=== PATIENT | female | born 1970 | race Caucasian/White ===

== ENCOUNTER 2018-04-27 16:27 | Emergency (ER) | payer MEDICARE ==
[2018-04-27] MEDS ORDERED: Sodium Chloride 0.9% 10 ML Syringe FLUSH PRN (16:38)
[2018-04-27] MEDS ORDERED: Sodium Chloride 0.9% 1,000 ML IV ONE (16:38)
--- NOTE | 2018-04-27 16:49 | EDM.PDOC ---
ED HPI GENERAL MEDICAL PROBLEM - General Chief Complaint: Gastrointestinal Problem Stated Complaint: N/V;BLOATED;ABD PAIN Time Seen by Provider: 04/27/18 16:34 Source of Information: Reports: Patient History Limitations: Reports: No Limitations - History of Present Illness INITIAL COMMENTS - FREE TEXT/NARRATIVE: Patient is a 47-year-old female who was seen in the [facility] clinic this afternoon and transferred to the emergency department secondary to workup for abdominal pain. Patient states that she's had right upper and lower abdominal pain on and off for the past 10 days. She does have episodes of nausea but no vomiting. She states that she does have chronic fibromyalgia and initially attributed the discomfort to that. Patient states that she feels very fatigued and has lost her appetite. Patient has history of complete hysterectomy. Patient denies fever, chest pain, shortness of breath, diarrhea, blood in stool , dysuria, any trauma, or out of country travel. Onset: Gradual Onset Date: 04/17/18 Duration: Week(s): Location: Reports: Abdomen Quality: Reports: Sharp, Other (Bloating) Severity: Moderate Improves with: Reports: None Worsens with: Reports: Eating Context: Denies: Trauma Associated Symptoms: Reports: Malaise, Nausea/Vomiting Right Abdomen Pain Score (Numeric/FACES): 5 - Related Data Allergies Allergy/AdvReac Type Severity Reaction Status Date / Time cephalexin Allergy Itching Verified 04/27/18 17:02 hydrocodone Allergy Hypotension Verified 04/27/18 17:02 [From Lorcet (hydrocodone)] metronidazole [From Flagyl] Allergy Rash Verified 04/27/18 17:02 morphine Allergy Respiratory Verified 04/27/18 17:02 Depression Penicillins Allergy Rash Verified 04/27/18 17:02 Sulfa (Sulfonamide Allergy Rash Verified 04/27/18 17:02 Antibiotics) Home Meds: Home Meds Estradiol 1 mg PO DAILY 02/25/16 [History] Levothyroxine 175 mcg PO ACBRK 02/25/16 [History] traMADol [Ultram] 100 mg PO Q8HR 02/25/16 [History] Ascorbic Acid [Vitamin C] 1,000 mg PO 04/27/18 [History] Aspirin 81 mg PO DAILY 04/27/18 [History] Usc954/FA/Omega3/Dha/Fish Oil [ Gummies] 1 tab PO DAILY 04/27/18 [ History] Past Medical History Gastrointestinal History: Reports: Chronic Constipation Musculoskeletal History: Reports: Fibromyalgia Psychiatric History: Reports: Anxiety, Depression Endocrine/Metabolic History: Reports: Hypothyroidism - Past Surgical History Female Surgical History: Reports: Section, Hysterectomy, Salpingo- Oophorectomy Musculoskeletal Surgical History: Reports: Carpal Tunnel Social & Family History - Caffeine Use Caffeine Use: Reports: Coffee, Energy Drinks, Soda ED ROS GENERAL - Review of Systems Review Of Systems: ROS reveals no pertinent complaints other than HPI. Constitutional: Reports: Fatigue HEENT: Reports: No Symptoms Respiratory: Reports: No Symptoms Cardiovascular: Reports: No Symptoms Endocrine: Reports: No Symptoms GI/Abdominal: Reports: Abdominal Pain, Constipation, Decreased Appetite, Nausea. Denies: Black Stool, Bloody Stool, Diarrhea, Difficulty Swallowing, Hematemesis, Hematochezia, Melena, Mucous in Stool, Vomiting : Reports: No Symptoms Musculoskeletal: Reports: Other (Chronic muscular pain) Skin: Reports: No Symptoms Neurological: Reports: No Symptoms Psychiatric: Reports: No Symptoms Hematologic/Lymphatic: Reports: No Symptoms Immunologic: Reports: No Symptoms ED EXAM, GI/ABD - Physical Exam Exam: See Below Exam Limited By: No Limitations General Appearance: Alert, WD/WN, Mild Distress Eyes: Right: Erythema, Left: Normal Appearance Throat/Mouth: Normal Inspection, Normal Oropharynx, No Airway Compromise Head: Atraumatic, Normocephalic Neck: Normal Inspection Respiratory/Chest: No Respiratory Distress, Lungs Clear, Normal Breath Sounds, No Accessory Muscle Use, Chest Non-Tender Cardiovascular: Regular Rate, Rhythm, No Murmur GI/Abdominal Exam: Normal Bowel Sounds, Soft, No Organomegaly, No Distention, No Abnormal Bruit, No Mass, Tender (Right upper and lower quadrant). No: Distended, Guarding, Rigid, Rebound Back Exam: CVA Tenderness (R). No: CVA Tenderness (L) Extremities: Normal Inspection, No Pedal Edema Neurological: Alert, Oriented, Normal Cognition Psychiatric: Normal Affect, Normal Mood Skin Exam: Warm, Dry, Intact, Normal Color, No Rash Lymphatic: No Adenopathy Course - Vital Signs Last Recorded V/S: Last Vital Signs Temp 97.7 F 04/27/18 16:54 Pulse 94 04/27/18 16:54 Resp 16 04/27/18 16:54 BP 122/84 01/17/19 16:54 Pulse Ox 98 04/27/18 16:54 - Orders/Labs/Meds Orders: Active Orders 24 hr Category Date Time Status Peripheral IV Care [RC] . DIRECTED Care 04/27/18 16:41 Active CBC WITH AUTO DIFF [HEME] Stat Lab 04/27/18 16:34 Ordered SEDIMENTATION RATE MANUAL [HEME] Stat Lab 04/27/18 16:34 Ordered Sodium Chloride 0.9% [Saline Flush] Med 04/27/18 16:38 Ordered 10 ml FLUSH Q8HR PRN Peripheral IV Insertion Adult [OM.PC] Routine Oth 04/27/18 16:38 Ordered Medication Orders Sodium Chloride (Saline Flush) 10 ml FLUSH Q8HR PRN PRN Reason: keep vein open Labs: Laboratory Tests 04/27/18 04/27/18 04/27/18 Range/Units 16:46 16:46 17:21 WBC 7.51 (5.00-10.00) 10^3/uL RBC 5.00 (3.80-5.50) 10^6/uL Hgb 15.0 (12.0-16.0) g/dL Hct 44.9 (37.0-47.0) % MCV 89.8 (82.0-92.0) fL MCH 30.0 (27.0-31.0) pg MCHC 33.4 (32.0-36.0) g/dL RDW 13.1 (11.5-14.5) % Plt Count 334 (150-400) 10^3/uL MPV 9.6 (7.4-10.4) fL Immature Gran % (Auto) 0.1 (0.0-5.0) % Neut % (Auto) 64.8 (50.0-70.0) % Lymph % (Auto) 25.8 (20.0-40.0) % [place] % (Auto) 7.7 (2.0-8.0) % Eos % (Auto) 1.1 (1.0-3.0) % Baso % (Auto) 0.5 (0.0-1.0) % Immature Gran # (Auto) 0.01 (0.00-0.50) 10^3/uL Neut # (Auto) 4.86 (2.50-7.00) 10^3/uL Lymph # (Auto) 1.94 (1.00-4.00) 10^3/uL [place] # (Auto) 0.58 (0.10-0.80) 10^3/uL Eos # (Auto) 0.08 L (0.10-0.30) 10^3/uL Baso # (Auto) 0.04 (0.00-0.10) 10^3/uL Sodium 136 (136-145) mmol/L Potassium 4.1 (3.3-5.3) mmol/L Chloride 99 (98-115) mmol/L Carbon Dioxide 29.6 (21.0-32.0) mmol/L Anion Gap 11.5 (5-15) mmol/L BUN 15 (6-25) mg/dL Creatinine 0.79 (0.51-1.17) mg/dL Est Cr Clr Drug Dosing 83.77 mL/min Estimated GFR (MDRD) > 60 mL/min Glucose 106 H (75 - 99) mg/dL Calcium 9.3 (8.7-10.3) mg/dL Total Bilirubin 0.3 (0.2-1.0) mg/dL AST 20 (15-37) U/L ALT 34 (12-78) U/L Alkaline Phosphatase 81 (46-116) IU/L Total Protein 7.9 (6.4-8.2) g/dL Albumin 3.97 (3.00-4.80) g/dL Lipase 136 (73-393) U/L Specimen Type Urincc Urine Color Light yellow (YELLOW) Urine Appearance Clear (CLEAR) Urine pH 6.0 (5.0-9.0) Ur Specific [place] 1.010 (1.005-1.030) Urine Protein Negative (NEGATIVE) mg/dL Urine Glucose (UA) Negative (NEGATIVE) mg/dL Urine Ketones Negative (NEGATIVE) mg/dL Urine Occult Blood Trace-intact H (NEGATIVE) Urine Nitrite Negative (NEGATIVE) Urine Bilirubin Negative (NEGATIVE) Urine Urobilinogen 0.2 (0.2-1.0) E.U./dL Ur Leukocyte Esterase Negative (NEGATIVE) Urine RBC 0-5 (0-5) /HPF Urine WBC 0-5 (0-5) /HPF Ur Epithelial Cells Moderate H /LPF Urine Bacteria Rare (NONE TO FEW) /HPF Meds: Medications Generic Name Dose Route Start Last Admin Trade Name Freq PRN Reason Stop Dose Admin Sodium Chloride 10 ml 04/27/18 16:38 Saline Flush FLUSH Q8HR PRN keep vein open Discontinued Medications Generic Name Dose Route Start Last Admin Trade Name Freq PRN Reason Stop Dose Admin Sodium Chloride 1,000 mls @ 999 mls/hr 04/27/18 16:38 04/27/18 17:16 Normal Saline IV 04/27/18 17:38 999 mls/hr .BOLUS ONE Administration Sodium Chloride 50 mls @ 3 mls/sec 04/27/18 17:23 Normal Saline IV 04/27/18 17:24 ASDIRECTED ONE Iopamidol 75 ml 04/27/18 17:23 Isovue-300 (61%) IV 04/27/18 17:24 ONETIME ONE Metoclopramide HCl 10 mg 04/27/18 17:10 04/27/18 17:16 Reglan IVPUSH 04/27/18 17:11 10 mg ONETIME ONE Administration - Radiology Interpretation Free Text/Narrative:: CT showed mild ileus, no appendicitis, diverticulitis, or infectious process noted. - Re-Assessments/Exams Free Text/Narrative Re-Assessment/Exam: 04/27/18 17:54 Patient afebrile, nontoxic appearing, vital signs stable, pain controlled. Patient takes 3-4 tramadol as per day, and has a poor diet. Discussed with patient the concern for mild ileus and constipation. Patient will be given information and follow-up at the clinic. 04/27/18 17:56 Departure - Departure Time of Disposition: 17:55 Disposition: Home, Self-Care 01 Condition: Good Clinical Impression: Abdominal pain Constipation Qualifiers: Constipation type: slow transit constipation Qualified Code(s): K59.01 - Slow transit constipation - Discharge Information Instructions: Constipation, Adult, [id number], Abdominal Pain, Adult, Easy-to -Read Referrals: Harriet Hammond PA-C [Primary Care Provider] - Forms: ED Department Discharge Additional Instructions: Follow-up at the clinic in 2-3 days. Return to the emergency room sooner if symptoms continue or worsen. Follow appropriate diet, and limit pain medicine. - My Orders Last 24 Hours: My Active Orders 04/27/18 16:34 CBC WITH AUTO DIFF [HEME] Stat SEDIMENTATION RATE MANUAL [HEME] Stat 04/27/18 16:38 Sodium Chloride 0.9% [Saline Flush] 10 ml FLUSH Q8HR PRN Peripheral IV Insertion Adult [OM.PC] Routine 04/27/18 16:41 Peripheral IV Care [RC] . DIRECTED - Assessment/Plan Last 24 Hours: My Active Orders 04/27/18 16:34 CBC WITH AUTO DIFF [HEME] Stat SEDIMENTATION RATE MANUAL [HEME] Stat 04/27/18 16:38 Sodium Chloride 0.9% [Saline Flush] 10 ml FLUSH Q8HR PRN Peripheral IV Insertion Adult [OM.PC] Routine 04/27/18 16:41 Peripheral IV Care [RC] . DIRECTED Assessment:: Constipation Plan: Follow-up at clinic
[2018-04-27 17:02] VITALS: BP 122/84
[2018-04-27] MEDS ORDERED: Metoclopramide 10 MG/2 ML SDV IVPUSH ONE (17:10)
[2018-04-27 17:15] LABS: ANION GAP 11.5 mmol/L (5-15); CHLORIDE,CL 99 mmol/L (98-115); SODIUM,NA 136 mmol/L (136-145)
[2018-04-27] MEDS: Iopamidol 612 MG/ML 75 ML Bottle IV ONE (17:23)
[2018-04-27] MEDS: Sodium Chloride 0.9% 50 ML IV ONE (17:23)
--- NOTE | 2018-04-27 17:29 | CT ---
[id number] CT/CT Abdomen Pelvis W IV EXAM: CT Abdomen Pelvis W IV CLINICAL DATA: RIGHT-SIDED ABDOMINAL PAIN COMPARISON: NO PREVIOUS SIMILAR EXAM IS AVAILABLE. FINDINGS: The uterus is slightly prominent for age. There is mild bowel distention. There is no adnexal mass or free fluid. There is no diverticulitis. The appendix appears normal. The liver and spleen, kidneys and adrenals, pancreas and aorta are unremarkable. The gallbladder is not distended. IMPRESSION: MILD ILEUS. Matt Izquierdo MD 04/27/18 4734 Thank you for allowing us to participate in the care of your patient.
[2018-04-27] MEDS ORDERED: Metoclopramide 10 MG Tab PO ONE (17:59)
[2018-04-28] MEDS: Sodium Chloride 0.9% 50 ML IV ONE (16:51)
[2018-04-28] MEDS: Iopamidol 612 MG/ML 75 ML Bottle IV ONE (17:05)
== END 2018-04-27 18:20 | disposition home or self-care (01) ==
LOC: KA.ED 16:27
DX: K59.01 Slow transit constipation (principal); F41.9 Anxiety disorder, unspecified; F32.9 Major depressive disorder, single episode, unspecified; E03.9 Hypothyroidism, unspecified; Z79.82 Long term (current) use of aspirin; Z79.899 Other long term (current) drug therapy; Z88.6 Allergy status to analgesic agent; Z88.8 Allergy status to other drugs, medicaments and biological substances; Z88.5 Allergy status to narcotic agent; Z88.0 Allergy status to penicillin; Z88.1 Allergy status to other antibiotic agents; Z88.2 Allergy status to sulfonamides
CPT/HCPCS: 36415; 74177; 80053; 81001; 83690; 85025; 85651; 96361; 96374; 99284; A9270-GY; J2765; J7030; J7050; Q9967

== ENCOUNTER 2021-02-18 20:33 | Emergency (ER) | payer MEDICARE ==
--- NOTE | 2021-02-18 20:44 | EDM.PDOC ---
ED HPI GENERAL MEDICAL PROBLEM - General Chief Complaint: Respiratory Problem Stated Complaint: BAD COUGHING Time Seen by Provider: 02/18/21 20:33 Source of Information: Reports: Patient History Limitations: Reports: No Limitations - History of Present Illness INITIAL COMMENTS - FREE TEXT/NARRATIVE: Cassandra, 50-year-old female, presents driven by her to the emergency de partment with ongoing cough. has not experiencing any symptoms at this time. Is not COVID-19 vaccinated. Does not get annual Influenza immunizations. She states that cough started some yesterday and has been intermittent worsening last night and specifically today. Today it has become slightly yellow with production at times but she is unable to quit coughing once she starts. Any deep inspiration or physical activity seems to promote cough. She states on the way to the facility this evening from the residence she started experiencing mild body aches. Denies any change in hearing taste or smell. States that she had a hamburger and Polish fries roughly an hour and a half prior to the presentation to the emergency department for evaluation. There has been no change in bowel or bladder. History of fibromyalgia being the only medical problem denying any respiratory diagnoses nor cardiac. States she has been using her 's albuterol nebulizers at home for her cough. She is not truly been short of breath. 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 treatments.) - Related Data Allergies Allergy/AdvReac Type Severity Reaction Status Date / Time cephalexin Allergy Itching Verified 02/18/21 20:39 hydrocodone Allergy Hypotension Verified 02/18/21 20:39 [From Lorcet (hydrocodone)] metronidazole [From Flagyl] Allergy Rash Verified 02/18/21 20:39 morphine Allergy Respiratory Verified 02/18/21 20:39 Depression Penicillins Allergy Rash Verified 02/18/21 20:39 Sulfa (Sulfonamide Allergy Rash Verified 02/18/21 20:39 Antibiotics) Home Meds: Home Meds Levothyroxine 150 mcg PO ACBRK 02/25/16 [History] estradioL [Estradiol] 1 mg PO DAILY 02/25/16 [History] traMADol [Ultram] 100 mg PO Q8HR 02/25/16 [History] Ascorbic Acid [Vitamin C] 1,000 mg PO DAILY 04/27/18 [History] Aspirin 81 mg PO DAILY 04/27/18 [History] Pnv No.103/Folic/Om3s/Fish Oil [ Gummies] 1 tab PO DAILY 04/27/18 [History] Benzonatate [Tessalon Perles] 100 mg PO TID 10 Days #30 cap 02/18/21 [Rx] Cholecalciferol (Vitamin D3) [Vitamin D3] 1 tab PO DAILY 02/18/21 [History] Codeine/guaiFENesin [Robitussin AC] 236 ml PO Q4HR 10 Days #236 liquid 02/18/21 [Rx] Past Medical History Cardiovascular History: Reports: None Respiratory History: Reports: None Gastrointestinal History: Reports: Chronic Constipation Musculoskeletal History: Reports: Fibromyalgia Psychiatric History: Reports: Anxiety, Depression Endocrine/Metabolic History: Reports: Hypothyroidism - Past Surgical History Female Surgical History: Reports: Section, Hysterectomy, Salpingo- Oophorectomy Musculoskeletal Surgical History: Reports: Carpal Tunnel Social & Family History - Family History Family Medical History: No Pertinent Family History - Tobacco Use Tobacco Use Status *Q: Never Tobacco User - Caffeine Use Caffeine Use: Reports: Coffee, Energy Drinks, Soda ED ROS GENERAL - Review of Systems Review Of Systems: Comprehensive ROS is negative, except as noted in HPI. ED EXAM, GENERAL - Physical Exam Exam: See Below Free Text/Narrative:: Alert, oriented, with no evidence of cyanosis nor pallor. There is a harsh cough nonproductive while I am in the room. HEENT is negative discharge or deformity with no involvement the auditory canals or tympanic membranes. [place] moist mucous membranes with no erythema nor exudate. Nasal passages are patent. Thorax is clear with inspiration exhalation cycle inducing cough. I do not appreciate any wheezes nor crackles. Full air exchange is noted throughout all tran. Cardiac is S1-S2 with no noted murmur. No flank pain no abdominal pain. No edema to the extremities. She states developing aches to the lower extremities as well as upper extremities which is not painful to touch but she states she can sense an increase with motion. She has done no activity or travel placing her at risk of muscle strain or other exposure. Course - Vital Signs Last Recorded V/S: Last Vital Signs Temp 96.3 F L 02/18/21 20:36 Pulse 102 H 02/18/21 21:25 Resp 20 02/18/21 21:25 BP 116/68 02/18/21 21:25 Pulse Ox 94 L 02/18/21 21:25 - Orders/Labs/Meds Orders: Active Orders 24 hr Category Date Time Status Chest 1V Frontal [CR] Stat Exams 02/18/21 20:40 Ordered Labs: Laboratory Tests 02/18/21 02/18/21 02/18/21 Range/Units 20:40 20:40 20:47 WBC 10.78 H (5.00-10.00) 10^3/uL RBC 4.63 (3.80-5.50) 10^6/uL Hgb 13.8 (12.0-16.0) g/dL Hct 42.1 (37.0-47.0) % MCV 90.9 (82.0-92.0) fL MCH 29.8 (27.0-31.0) pg MCHC 32.8 (32.0-36.0) g/dL RDW 13.3 (11.5-14.5) % Plt Count 333 (150-400) 10^3/uL MPV 9.4 (7.4-10.4) fL Immature Gran % (Auto) 0.2 (0.0-5.0) % Neut % (Auto) 79.7 H (50.0-70.0) % Lymph % (Auto) 9.7 L (20.0-40.0) % [place] % (Auto) 8.0 (2.0-8.0) % Eos % (Auto) 1.9 (1.0-3.0) % Baso % (Auto) 0.5 (0.0-1.0) % Neut # (Auto) 8.60 H (2.50-7.00) 10^3/uL Lymph # (Auto) 1.05 (1.00-4.00) 10^3/uL [place] # (Auto) 0.86 H (0.10-0.80) 10^3/uL Eos # (Auto) 0.20 (0.10-0.30) 10^3/uL Baso # (Auto) 0.05 (0.00-0.10) 10^3/uL Immature Gran # (Auto) 0.02 (0.00-0.50) 10^3/uL Sodium 144 (136-145) mmol/L Potassium 4.5 (3.5-5.1) mmol/L Chloride 105 (98-107) mmol/L Carbon Dioxide 27.9 (21.0-32.0) mmol/L Anion Gap 15.6 H (5-15) mmol/L BUN 7 (7-18) mg/dL Creatinine 0.82 (0.51-1.17) mg/dL Est Cr Clr Drug Dosing 79.50 mL/min Estimated GFR (MDRD) > 60 mL/min Glucose 115 (70-140) mg/dL Calcium 8.9 (8.7-10.3) mg/dL Total Bilirubin 0.2 (0.2-1.0) mg/dL AST 19 (15-37) U/L ALT 34 (14-63) U/L Alkaline Phosphatase 83 (46-116) U/L Total Protein 7.6 (6.4-8.2) g/dL Albumin 3.84 (3.40-5.00) g/dL Influenza Type A RNA Negative (NEGATIVE) RSV RNA (INAAT) Negative (NEGATIVE) Influenza Type B RNA Negative (NEGATIVE) SARS-CoV-2 RNA (CAR) Negative (NEGATIVE) Meds: Medications Discontinued Medications Generic Name Dose Route Start Last Admin Trade Name Freq PRN Reason Stop Dose Admin Benzonatate 100 mg 02/18/21 21:14 02/18/21 21:24 Benzonatate 100 Mg Cap PO 02/18/21 21:15 100 mg ONETIME ONE Administration Benzonatate 100 mg 02/18/21 21:47 02/18/21 21:55 Benzonatate 100 Mg Cap PO 02/18/21 21:48 100 mg ONETIME ONE Administration Guaifenesin/Codeine Phosphate 5 ml 02/18/21 21:13 02/18/21 21:24 Codeine/Guaifenesin 10-100 Mg/5 Ml Syrup 5 Ml Cup PO 02/18/21 21:14 5 ml ONETIME ONE Administration Guaifenesin/Codeine Phosphate 5 ml 02/18/21 21:47 02/18/21 21:55 Codeine/Guaifenesin 10-100 Mg/5 Ml Syrup 5 Ml Cup PO 02/18/21 21:48 5 ml ONETIME ONE Administration - Re-Assessments/Exams Free Text/Narrative Re-Assessment/Exam: 02/18/21 21:15 Discussed with aCssandra chest x-ray is negative and questioned if she is able to use codeine. She states codeine has been tolerable in the past and we will implement Cheratussin syrup 5 mL as well as 100 mg Tessalon Perle Departure - Departure Time of Disposition: 21:55 Disposition: Home, Self-Care 01 Condition: Good Clinical Impression: Cough in adult, Body aches, Viral illness - Discharge Information *PRESCRIPTION DRUG MONITORING PROGRAM REVIEWED*: Not Applicable *COPY OF PRESCRIPTION DRUG MONITORING REPORT IN PATIENT REBEL: Not Applicable Prescriptions: Codeine/guaiFENesin [Robitussin AC] 236 ml PO Q4HR 10 Days #236 liquid Benzonatate [Tessalon Perles] 100 mg PO TID 10 Days #30 cap Instructions: Viral Illness, Adult, Cough, Adult Referrals: Annmarie Larson PA-C [Primary Care Provider] - Forms: ED Department Discharge Additional Instructions: We have given you Robitussin-AC 1 teaspoon every 4 hours as needed for cough. We have also ordered Tessalon Perles 1 every 8 hours. Continue to maintain good fluid hydration. Continue all your home medications as directed. You may use Tylenol or Aleve/ibuprofen whichever works best for you for your generalized body aches. Contact your clinic tomorrow to arrange for a recheck Tuesday, you may cancel this if you are feeling better. The length of viral illness can be significantly varying in each individual some 2 to 3 days of severity others lasting closer to a week. Return to the emergency department outside of clinic hours as needed Sepsis Event Note (ED) - Evaluation Sepsis Screening Result: No Definite Risk - Focused Exam Vital Signs: Vital Signs Temp Pulse Resp BP Pulse Ox 02/18/21 21:25 102 H 20 116/68 94 L 02/18/21 20:36 96.3 F L 99 20 118/67 95 - Problem List & Annotations (1) Cough in adult SNOMED Code(s): 34140619 Code(s): R05.9 - COUGH, UNSPECIFIED Status: Acute Current Visit: Yes (2) Body aches SNOMED Code(s): 17137193 Code(s): R52 - PAIN, UNSPECIFIED Status: Chronic Priority: Medium Current Visit: Yes (3) Viral illness SNOMED Code(s): 79685353 Code(s): B34.9 - VIRAL INFECTION, UNSPECIFIED Status: Acute Current Visit: Yes - Problem List Review Problem List Initiated/Reviewed/Updated: Yes - My Orders Last 24 Hours: My Active Orders 02/18/21 20:40 Chest 1V Frontal [CR] Stat - Assessment/Plan Last 24 Hours: My Active Orders 02/18/21 20:40 Chest 1V Frontal [CR] Stat Plan: We have given you Robitussin-AC 1 teaspoon every 4 hours as needed for cough. We have also ordered Tessalon Perles 1 every 8 hours. Continue to maintain good fluid hydration. Continue all your home medications as directed. You may use Tylenol or Aleve/ibuprofen whichever works best for you for your generalized body aches. Contact your clinic tomorrow to arrange for a recheck Tuesday, you may cancel this if you are feeling better. The length of viral illness can be significantly varying in each individual some 2 to 3 days of severity others lasting closer to a week. Return to the emergency department outside of clinic hours as needed.
[2021-02-18 21:18] LABS: ANION GAP 15.6 mmol/L (5-15); CHLORIDE,CL 105 mmol/L (98-107); SODIUM,NA 144 mmol/L (136-145)
[2021-02-18] MEDS: Benzonatate 100 MG Cap PO ONE ×2 (21:24→21:55)
[2021-02-18] MEDS: Codeine/guaiFENesin 10-100 MG/5 ML Syrup 5 ML Cup PO ONE ×2 (21:24→21:55)
[2021-02-18 21:26] VITALS: BP 116/68; PULSE 102
[2021-02-18 21:33] LABS: CORONAVIRUS COVID-19 NAA NEGATIVE (NEGATIVE); RESPIRATORY SYNCYTIAL VIR NAA NEGATIVE (NEGATIVE)
--- NOTE | 2021-02-19 07:48 | CR ---
[id number] RAD/RAD Chest PA or AP 1V EXAM: SINGLE VIEW CHEST. INDICATION: COUGH COMPARISON: CORRELATION IS MADE WITH FEBRUARY 25, 2016 FINDINGS: The lungs are clear The cardiomediastinal contour is normal. IMPRESSION: NO PNEUMONIA OR EDEMA Matt Izquierdo MD 02/19/21 0746 Thank you for allowing us to participate in the care of your patient.
== END 2021-02-18 22:02 | disposition home or self-care (01) ==
LOC: KA.ED 20:33
DX: B34.9 Viral infection, unspecified (principal); Z20.822 Contact with and (suspected) exposure to COVID-19; E03.9 Hypothyroidism, unspecified; Z88.5 Allergy status to narcotic agent; Z88.0 Allergy status to penicillin; Z88.2 Allergy status to sulfonamides; Z88.1 Allergy status to other antibiotic agents; Z79.82 Long term (current) use of aspirin; Z79.899 Other long term (current) drug therapy
CPT/HCPCS: 0241U; 36415; 71045; 80053; 85025; 99283-25; 99284; A9270-GY

== ENCOUNTER 2021-09-12 18:52 | Emergency (ER) | payer MEDICARE ==
[2021-09-12] MEDS ORDERED: Sodium Chloride 0.9% 10 ML Syringe FLUSH PRN (18:56)
[2021-09-12] MEDS: Sodium Chloride 0.9% 1,000 ML IV ONE (19:19)
[2021-09-12] MEDS: Ondansetron 4 MG/2 ML SDV IVPUSH ONE (19:21)
[2021-09-12 19:36] LABS: ANION GAP 10.4 mmol/L (5-15); CHLORIDE,CL 103 mmol/L (98-107); SODIUM,NA 139 mmol/L (136-145)
[2021-09-12 20:11] VITALS: BP 115/72; PULSE 70
[2021-09-12] MEDS: Ondansetron 4 MG Tab.DIS PO ONE (20:15)
[2021-09-12] MEDS: Meclizine 25 MG Tab PO PRN (20:15)
== END 2021-09-12 20:15 | disposition home or self-care (01) ==
LOC: KA.ED 18:52
DX: H81.11 Benign paroxysmal vertigo, right ear (principal); E03.9 Hypothyroidism, unspecified; Z90.710 Acquired absence of both cervix and uterus; Z79.899 Other long term (current) drug therapy; Z79.82 Long term (current) use of aspirin; Z88.1 Allergy status to other antibiotic agents; Z88.5 Allergy status to narcotic agent; Z88.0 Allergy status to penicillin; Z88.6 Allergy status to analgesic agent; Z88.2 Allergy status to sulfonamides
CPT/HCPCS: 36415; 71045; 80053; 83605; 84484; 85025; 93005; 93010; 96361; 96374; 99284; 99285-25; A9270-GY; J2405; J7030